=== PATIENT | male | born 1975 | race Caucasian/White ===

== ENCOUNTER → 2024-12-14 11:09 | Outpatient (REF) | payer BC, SELFPAY | LOC: RAD 11:09 | PROVIDERS: ATTENDING PHYSICIAN Internal Medicine | DX: M25.551 Pain in right hip (principal) | CPT/HCPCS: 73502 ==

== ENCOUNTER 2025-01-10 13:21 | Inpatient (IN) | payer BC, SELFPAY ==
[2025-01-10 09:13] VITALS: BP 131/90
[2025-01-10 09:52] VITALS: BMI 28.3
[2025-01-10] MEDS: MORPHINE SULFATE 4 MG IV (10:04)
--- NOTE | 2025-01-10 10:09 | ED.GENMED ---
History of Present Illness
General
Chief Complaint: Abdominal Symptoms
Source: patient
Exam Limitations: none
Time Seen by Provider: 01/10/25 09:31
Nursing documentation reviewed up to this point in time: agreed with
History of Present Illness
History of Present Illness:
49-year-old male with history as noted presents to the ER for evaluation of flank pain. Patient reports onset of symptoms rather suddenly at 6 AM and have been constant since that time. He reports a sharp pain 'like a side stitch' in the left
flank that radiates towards the left lower abdomen. No clear triggering or relieving factors noted. He denies any associated nausea, vomiting, diarrhea, constipation. Denies fevers or chills. He denies any dysuria, hematuria, change in urinary
frequency. He denies any scrotal pain or swelling. His only associated symptom today was that when he had a bowel movement he noticed some small amount of blood coating stool. He denies having had similar issues in the past. He had prior right
inguinal hernia repair but otherwise denies any prior abdominal surgeries.
Past History
Past History
ED Past Medical History: Other (Chronic back pain)
ED Past Surgical History: Orthopedic (L4-L5 disc discectomy)
Review of Systems
Review of Systems
All Other Systems: ROS reviewed and negative except as documented in HPI and ROS
Constitutional: Denies fever or chills
Respiratory: Denies trouble breathing
Cardiac: Denies chest pain
ABD/GI: Reports abdominal pain and bloody stools; Denies nausea, vomiting, diarrhea or constipated
: Reports flank pain; Denies dysuria, frequency or bleeding
Musculoskeletal: Denies neck pain
Neurological: Denies headache
Phy Exam
Physical Exam
Physical Exam:
General: Awake, alert, oriented x3; appears mildly uncomfortable
Head: Normocephalic, atraumatic
Eyes: Conjunctiva normal, sclera anicteric
Throat: Airway intact, handling secretions
Neck: Trachea midline, supple without meningismus
Lungs: Clear to auscultation bilaterally, no wheezing, rales, rhonchi
Heart: Regular rate and rhythm, no murmurs, gallops, or rubs
Abd: Soft, non distended, tender to palpation left lower quadrant, no palpable masses
Back: No CVA tenderness or reproducible tenderness in the midline or paraspinal region of the thoracic or lumbar spine
Neuro: No gross deficits
Skin: no rash in area of concern
Extremities: Warm and well-perfused
Scores
Heart Failure Risk
Heart Failure Risk Score: Not Applicable
Heart Score for Chest Pain Patients
STEMI patient?: Not applicable
Withdrawal Assessment of Alcohol
Withdrawal Assessment Completed?: Not applicable
Course
Orders/Labs/Results
Orders:
Orders
01/10/25 09:48
CT Abd/pelvis W Iv Cont Urgent
Comment:
Reason For Exam: LLQ pain
Morphine Sulfate 4 mg IV NOW STA
01/10/25 10:02
Complete Blood Count/With Diff Urgent
Urinalysis Reflex To Culture Urgent
Date Specimen was Collected: 01/10/25
Time Specimen was Collected: 10:00
Urine Microscopic Reflex Cult Urgent
Urine Culture Urgent
SULEMAN Source: U
Specimen Description:
Date Specimen was Collected: 01/10/25
Time Specimen was Collected: 10:00
01/10/25 10:03
Comprehensive Metabolic Panel Urgent
Lipase Urgent
01/10/25 10:25
Ketorolac [Toradol] 15 mg IV NOW STA
01/10/25 12:04
HYDROmorphone [Dilaudid] 0.5 mg IV NOW STA
01/10/25 12:05
Amoxicillin 875 mg/Clav 125 mg [Augmentin 875 mg/125 mg] 1 tablet PO NOW STA
01/10/25 12:11
Zosyn 3.375 grams IVPB NOW Piperacillin/Tazo 3.375 Gram [Zosyn] 3.375 gram in 50 ml IV NOW
01/10/25 12:15
0.9% Sodium Chloride 1000 ml [Nss] 1,000 ml IV 125 mls/hr
Abnormal Lab Results
01/10/25 01/10/25
10:02 10:03
WBC 17.9 H 10^3/uL
(4.8-10.8)
MPV 10.8 H fL
(7.4-10.4)
Abs Immat Gran (auto) 0.1 H 10^3/uL
(0-0.05)
Absolute Neuts (auto) 13.1 H 10^3/uL
(1.4-6.5)
Absolute Monos (auto) 1.2 H 10^3/uL
(0.1-0.6)
Lymphocytes % 17.7 L %
(20.5-51.1)
Chloride 108 H mmol/L
(98-107)
Urine Ketones 1+ A
(Negative)
Ur Occult Blood Reflex 3+ A
(Negative)
Leukocyte Esterase Rfl 3+ A
(Negative)
Urine RBC 3-6 A /HPF
(0-2)
Urine Albumin (Reflex) 2+ A
(Neg - Trace)
01/10/25 10:02
01/10/25 10:03
Vital Signs
Initial and Last Documented VS:
Initial Vital Signs
Temp Pulse Resp BP Pulse Ox
36.6 C 84 16 131/90 99
01/10/25 09:13 01/10/25 09:13 01/10/25 09:13 01/10/25 09:13 01/10/25 09:13
Last Documented Vital Signs
Temp Pulse Resp BP Pulse Ox
36.6 C 84 16 131/90 99
01/10/25 09:13 01/10/25 09:13 01/10/25 09:13 01/10/25 09:13 01/10/25 10:14
MDM/Problems Addressed
Differential Diagnosis Includes:
Nephrolithiasis, diverticulitis, colitis, constipation, musculoskeletal pain, radiculopathy, early shingles
MDM/Problems Addressed:
49-year-old male presents for evaluation of sudden onset of left flank pain as described above. Vitals and exam as above. Will plan to place an IV send labs including a CBC and a CMP, urinalysis. Will check CT of the abdomen pelvis. Will provide
pain control. Monitor closely reassess after the above.
Labs reviewed: CBC shows leukocytosis to 17.9. CMP no clinically significant abnormalities. Urinalysis positive for blood but no clear infection. CT pending. Patient still having significant pain we will add Toradol.
CT shows signs consistent with colitis and acute diverticulitis. No signs of perforation or abscess. Clinical reassessment patient still having severe pain. He is currently in the position complaining of severe abdominal pain. This is
despite morphine and Toradol. Will treat with Dilaudid. While he does have leukocytosis he has no other sirs criteria no signs of endorgan damage to suggest sepsis however given poorly controlled pain I think hospital admission is indicated in
this patient. Will treat with IV antibiotics, case discussed with hospitalist for admission.
*Radiology
Radiology exam reviewed: radiology read reviewed
*Pulse Oximetry
SaO2: 99
Oxygen Mode of Delivery: Room air
Patient hypoxic: no (99%)
*Critical Care Note
Total Time (30-74mins, 75-104mins- exclusive of procedures): Not Applicable
Data Reviewed
Review of Other/Old Records Reveals: Labs and Records
Source: patient and records
Patient Management
Discussion with other providers: Hospitalist (Discussed with hospitalist)
Escalation/DeEscalation of care consider admission/obs:
Admission indicated
ED Attending Note
-
Portions of this chart may have been created with voice recognition software.� Occasional wrong word or��sound alike� substitutions may have occurred due to the inherent limitations of voice recognition software.
Discharge Plan
Departure
Patient Disposition: Admit
Date of Disposition: 01/10/25
Time of Disposition: 12:13
Admit to doctor: Rm
Presentation/result/management discussed w/ accepting MD/DO: Hospitalist
Discharge Problem:
Acute diverticulitis, Colitis
Referrals:
UNKNOWN - PT NOT,INTERVIEWE [Unknown Provider]
Interventions
Interventions:
*Risk Screen - Suicide Last Done: 01/10/25 09:52
*General Assessment Last Done: 01/10/25 09:52
*Neglect/Abuse Screening Last Done: 01/10/25 09:52
*ED- Fall Risk Assessment Last Done: 01/10/25 09:52
*ED COVID-19 Vaccine History Last Done: 01/10/25 09:52
AY-Lsoawx-Qilpggxnwh Assessment Last Done: 01/10/25 09:52
Discharge Date and Time
Print Language: CZECH
[2025-01-10 10:21] LABS: Urine Albumin 2+ (Neg - Trace); Urine Bilirubin Negative (Negative); Urine Character Clear (Clear); Urine Color Yellow; Urine Glucose Negative (Negative); Urine Ketone 1+ (Negative); Urine Leukocyte 3+ (Negative); Urine Nitrite Negative (Negative); Urine Occult Blood 3+ (Negative); Urine Specific Gravity 1.025 (<1.030); Urine Urobilinogen 1+ (Neg - 1+)
[2025-01-10 10:26] LABS: % Basophils 0.3 % (0-2); % Eosinophils 1.6 % (0-6); % Immature Granulocytes 0.3 % (0-0.5); % Lymphocytes 17.7 % (20.5-51.1); % Monocytes 6.6 % (1.7-9.3); % Neutrophils 73.5 % (42.2-75.2); Absolute Basophils 0.1 10^3/uL (0-0.2); Absolute Eosinophils 0.3 10^3/uL (0-0.7); Absolute Immature Granulocytes 0.1 10^3/uL (0-0.05); Absolute Lymphocytes 3.2 10^3/uL (1.2-3.4); Absolute Monocytes 1.2 10^3/uL (0.1-0.6); Absolute Neutrophils 13.1 10^3/uL (1.4-6.5); Hematocrit 44.7 % (39.0-52.0); Hemoglobin 15.3 g/dL (13.0-18.0); Mean Corp Hgb Conc. 34.2 g/dL (33.0-37.0); Mean Corpuscular Hgb 30.5 pg (27.0-31.0); Mean Corpuscular Volume 89.2 fL (80.0-94.0); Mean Platelet Volume 10.8 fL (7.4-10.4); Nucleated Red Blood Cells % 0 % (-); Platelet Count 269 10^3/uL (130-400); Red Blood Cell Count 5.01 10^6/uL (4.70-6.10); Red Cell Dist. Width 13.2 % (11.5-14.5); White Blood Cell Count 17.9 10^3/uL (4.8-10.8)
[2025-01-10] MEDS: TORADOL 15 MG IV (10:34)
[2025-01-10 10:51] LABS: ALT (SGPT) 21 U/L (0-50); AST (SGOT) 24 U/L (17-59); Albumin 4.4 g/dl (3.5-5.0); Alkaline Phosphatase 54 U/L (38-126); Blood Urea Nitrogen 17 mg/dl (9-20); Calcium 9.7 mg/dl (8.4-10.2); Carbon Dioxide 29 mmol/L (22-30); Chloride 108 mmol/L (98-107); Estimated Creatinine Clearance 115 ml/min; Glucose 87 mg/dl (70-99); Lipase 269 U/L (23-300); Potassium 4.5 mmol/L (3.5-5.1); Sodium 141 mmol/L (135-145); Total Bilirubin 0.5 mg/dl (0.2-1.3); Total Protein 7.2 g/dl (6.3-8.2); eGFR > 60.00
[2025-01-10 11:58] LABS: Urine Mucus Many
[2025-01-10 11:59] LABS: Urine Squamous Cell 0-2 /LPF (Few)
[2025-01-10 12:00] LABS: Urine Amorphous Seen
[2025-01-10] MEDS: NSS 1000 IV ×2 (12:20→17:05)
[2025-01-10] MEDS: DILAUDID 0.5 MG IV ×3 (12:21→23:51)
[2025-01-10] MEDS: ZOSYN 50 IV ×3 (12:21→23:21)
[2025-01-10] MEDS: ZOFRAN 4 MG IV ×2 (12:30→16:54)
--- NOTE | 2025-01-10 13:06 | HPS.HSE ---
Family Physician
-
Family Physician: Catracho Damico
Chief Complaint
-
evaluation of Lt. flank pain.
History of Present Illness
49M HX Chr back pain seen at ER for evaluation of flank pain.
- sudden onset acute flank painsince 6am
- described as sharp pain 'like a side stitch' in the left flank that radiates towards the left lower abdomen.
- No clear triggering or relieving factors noted.
- denies any associated nausea, vomiting, diarrhea, constipation.
- denies fevers or chills. He denies any dysuria, hematuria, change in urinary frequency.
- denies any scrotal pain or swelling.
- when he had a bowel movement he noticed some small amount of blood coating stool.
- He denies having had similar issues in the past. He had prior right inguinal hernia repair but otherwise denies any prior abdominal surgeries.
Medical History
Past Medical History
Past Medical History: Reports Other (Chronic back pain))
Past Surgical History: Reports Orthopedic (L4-L5 disc discectomy))
Social History
Tobacco: Non-smoker
Alcohol: Occasional
Family History
Family History: Not pertinent
Allergies / Home Medications
Allergies reflects when Allergies were last updated in [employer].
Home Medications with original date entered in [employer]
Allergy/Medication List:
Allergies
Allergy/AdvReac Type Severity Reaction Status Date / Time
sesame seeds Allergy Anaphylaxis Uncoded 01/10/25 09:12
white armida tree Allergy Unknown Uncoded 01/10/25 09:12
Home Medications
meloxicam 15 mg tablet 15 mg PO DAILYPRN PRN mild pain 01/10/25
Review of Systems
-
Constitutional: Reports No Symptoms
EENT: Reports No Symptoms
Respiratory: Reports No Symptoms
Cardiac: Reports No Symptoms
Abdomen/GI: Reports See HPI
: Reports No Symptoms
Musculoskeletal: Reports No Symptoms
Skin: Reports No Symptoms
Neurological: Reports No Symptoms
Endocrine: Reports No Symptoms
Hematologic/Lymphatic: Reports No Symptoms
Psych: Reports No Symptoms
Physical Exam
Vital Signs
Vital Signs
Temp Pulse Resp BP Pulse Ox
98 F 84 16 131/90 99
01/10/25 09:13 01/10/25 09:13 01/10/25 09:13 01/10/25 09:13 01/10/25 10:14
Physical Exam
General: Well Developed, Well Nourished and No Apparent Distress
HEENT: NormoCephalic, Moist mucous membranes and Atraumatic
Respiratory: Clear
Cardiac: S1/S2 and Regular Rhythm; No Murmur or Rub
GI: Tender ( tender to palpation left lower quadrant)
Rectal: Deferred by Provider
Musculoskeletal: No Clubbing, No Cyanosis and No Edema
Skin: No Rash
Neuro: Nonfocal/grossly intact
Laboratory Results
-
01/10/25 10:02
01/10/25 10:03
Laboratory Results
Total Bilirubin 0.5 mg/dl (0.2-1.3) 01/10/25 10:03
AST 24 U/L (17-59) 01/10/25 10:03
ALT 21 U/L (0-50) 01/10/25 10:03
Alkaline Phosphatase 54 U/L (38-126) 01/10/25 10:03
Lipase 269 U/L (23-300) 01/10/25 10:03
Data Reviewed
-
CT Scan: Report Reviewed by me
Lab Data: Labs Reviewed by me
Impression/Plan
-
Data
Laboratory Tests
01/10/25 01/10/25
10:02 10:03
WBC 17.9 H
Hgb 15.3
Plt Count 269
Creatinine 0.8
eGFR > 60.00
CT Abd/pelvis W Iv Cont
1. Mild acute uncomplicated left-sided colitis, likely of infectious/inflammatory etiology.
2. Suspect superimposed acute diverticulitis within the mid descending colon.
Last hospitalist admission:
ASSESSMENT & PLAN
49M pw acute onset of left flank pain. POS leukocytosis to 17.9. CMP no clinically significant abnormalities. Urinalysis positive for blood but no clear infection.
Acute uncomplicated left-sided colitis, likely of infectious/inflammatory etiology.
CT suggest suspect superimposed acute diverticulitis within the mid descending colon.
- Clinical reassessment patient still having severe pain despite IV Toradol, IV Morphine and IV Dilaudid
- No signs of perforation or abscess
- NPO and IVF
- PRN IV narcotic analgesia and anti emetics
- Empiric Zosyn
- CRS consulted
DVT Px: SQH
Full code
IP MS
[2025-01-10 13:30] VITALS: BP 139/77
--- NOTE | 2025-01-10 13:54 | CM ---
CM reviewed chart and met with pt bedside in ED. Pt lives with in multistory home, 6 [address] from front, 3 [address] from side.
first floor half bath, full flight steps to second floor with BR/full BA.
Independent in ambulation, ADLs and personal care at baseline.
No DME, no hx VN/SNF.
No financial insecurities.
PCP: Catracho Damico
Pharmacy: [address]
Discharge plan: Anticipate home, no needs
[2025-01-10 15:03] VITALS: BP 112/74
--- NOTE | 2025-01-10 15:29 | CON.CRS ---
Consultation
-
Date/Time Consultation Requested: 01/10/2025, 13:28
Date/Time Consultation Performed: 01/10/2025, 14:30
Requesting Provider: Shaggy Matias MD
Performing Provider: Mo Hurt MD
Reason for Consultation: diverticulits
Medical History
-
Chief Complaint: abdominal pain
History of Present Illness:
49-year-old male with a past medical history of chronic back pain secondary to multiple spine surgeries, presents to the ER due to abdominal pain. The patient states that pain like this is never happened before and started around 6 AM this morning.
He vomited several times and was nauseous earlier. Typically has bowel movements are 4-5 times a day but the one this morning had blood in it which was concerning enough for him to go to the ER. He has never had a colonoscopy. Denies a family
history of rectal or colon cancer. In the ER his WBC was 17.9. He remains afebrile. CT of the abdomen and pelvis showed mild acute uncomplicated left-sided colitis. Likely of infectious/inflammatory etiology. Suspect superimposed acute
diverticulitis within the mid descending colon. Given these findings. We have been consulted for surgical opinion.
Past Medical History
Past Medical History: Other (Chronic back pain)
Past Surgical History: Other (Multiple spine surgeries)
Social History
Tobacco: Smoker (3/4 pack a day since 10 years old)
Alcohol: None
Drug: None
Family History
Family History: Reviewed & Not Pertinent
Allergies / Home Medications
Allergy/AdvReac Type Severity Reaction Status Date / Time
sesame seeds Allergy Anaphylaxis Uncoded 01/10/25 09:12
white armida tree Allergy Unknown Uncoded 01/10/25 09:12
�Medication �Instructions �Recorded �Confirmed �Type
meloxicam 15 mg tablet 15 mg PO DAILYPRN PRN mild pain 01/10/25 01/10/25 History
Review of Systems
-
History Source: Patient
Abdomen/GI: Abdominal Pain, Nausea, Vomiting and Bloody Stools
A 10 point review of systems was completed, and was negative except as per HPI.
Physical Exam
Vital Signs
Temp 98 F 01/10/25 09:13
Pulse 84 01/10/25 13:30
Resp Rate 18 01/10/25 13:30
Blood pressure 112/74 01/10/25 15:03
SaO2 98 01/10/25 13:30
01/09/25 01/10/25 01/11/25
06:59 06:59 06:59
Actual Weight 89.358 kg
Body Mass Index (BMI) 28.3
Lab Results / Allergies
01/10/25 10:02
01/10/25 10:03
WBC 17.9 10^3/uL (4.8-10.8) H 01/10/25 10:02
Hgb 15.3 g/dL (13.0-18.0) 01/10/25 10:02
Hct 44.7 % (39.0-52.0) 01/10/25 10:02
Plt Count 269 10^3/uL (130-400) 01/10/25 10:02
Abs Immat Gran (auto) 0.1 10^3/uL (0-0.05) H 01/10/25 10:02
Neutrophils % 73.5 % (42.2-75.2) 01/10/25 10:02
Allergy/AdvReac Type Severity Reaction Status Date / Time
sesame seeds Allergy Anaphylaxis Uncoded 01/10/25 09:12
white armida tree Allergy Unknown Uncoded 01/10/25 09:12
Physical Exam
General: Well Developed, Well Nourished and No Apparent Distress
GI: Soft, Tender (Left LUQ/Left lateral) and Distended (mild)
Skin: Warm and Dry
Neuro: AO x 3
Data Reviewed
-
CT Scan: Image Personally Visualized and interpreted, Report Reviewed by me and Discussed with Patient
Labs: Labs Reviewed by me, Discussed with Physician and Discussed with Patient
Old Records: Reviewed
Assessment / Plan
-
Assessment: 49-year-old male with a past medical history of chronic back pain presents to the ER after abdominal pain and bloody stools this morning. Found to have left-sided colitis likely infectious or inflammatory in nature as well as
diverticulitis.
Plan:
- Remain n.p.o. with IV fluids
- Recommend gastroenterology consult given colitis findings
- IV antibiotics
- Will need eventual colonoscopy by Dr. Hurt as an outpatient
-No plans for surgery at this time. If he worsens he will require colectomy with colostomy creation.
- Trend lab work and exam
- Stool culture, CRP, and fecal Calproctin ordered
- Will follow
[2025-01-10 16:13] VITALS: BP 130/81; BMI 28.5
--- NOTE | 2025-01-10 17:13 | CON.GI ---
Addendum entered and electronically signed by Graham Shankar MD 01/10/25 18:25:
The patient was seen and examined by me independently in collaboration with the nurse practitioner.
Past medical history/social history/medications/allergies/family history reviewed.
Lab data and imaging data reviewed.
49-year-old male past medical history of chronic back pain on meloxicam, smoker presenting with left upper quadrant pain. He did have blood in his stool but no diarrhea. This all happened acutely this morning. Never had colonoscopy. No family
history of IBD although he has history of Urticara. No chronic GI symptoms. Symptoms did happen after eating chicken at [employer]. Denies any sick contacts, travel, antibiotics.
He was found to have leukocytosis with white blood cell count of 17.9, hemoglobin 15.[address] to have mild acute uncomplicated colitis likely infectious or inflammatory in etiology. Suspect superimposed acute diverticulitis in the mid
descending colon.
This seems to be more acute in etiology making inflammatory bowel disease less likely however I would recommend a colonoscopy in 6 to 8 weeks both to assess for any ongoing inflammation as well as to rule out malignancy with this possible
diverticulitis although my suspicion is low given the length and bowel involved. Patient is also 49 and never had a colonoscopy. Although he is not having diarrhea which is typically more expected with infectious etiology, stool culture was
ordered and I also ordered C. difficile in case he does have some diarrhea. Fecal calprotectin has been ordered as well.
I will send a message to my office to set him up for a colonoscopy in 6 to 8 weeks.
In the interim, recommend bowel rest, antibiotics, monitor hemoglobin and white blood cell count.
Original Note:
Consultation
-
Date/Time Consultation Requested: 01/10/25 1600
Date/Time Consultation Performed: 01/10/25 1700
Requesting Provider: Dr. Hurt
Performing Provider: Dr. Otoole/MARRY Broderick
Reason for Consultation: colitis/diverticultis
Medical History
Chief Complaint / HPI
Chief Complaint: left sided abd pain
History of Present Illness:
49-year-old male with past medical history of chronic back pain on meloxicam for the past week, tobacco use presents to the emergency room with acute onset of left-sided abdominal discomfort associated with bowel movement with undigested food and
blood. Asked to evaluate for the same. The patient states that this morning he woke up and had left upper quadrant discomfort that he states was a 'stabbing sensation'. He states that he had a bowel movement which he showed me that was large,
solid, had blood mixed throughout it. He has had no further bowel movement since. He still with significant left upper quadrant tenderness upon palpation. He did have an episode of nausea and vomiting as well. Because of this he proceeded to
come to the emergency room. Prior to the meloxicam use he was taking intermittent Advil for back pain. He has never had a colonoscopy before. No family history of gastrointestinal malignancy or IBD. He does have a temperature of 100.2, WBC 17.9.
He was placed on Zosyn. He denies any chills, melena, dysphagia or odynophasia. No early satiety or unintentional weight loss. He has never had pains or issues prior to this. His bowel movements are usually soft, formed, regular and daily. He
does smoke tobacco. He does not drink any alcohol. He denies any sick contacts, recent travel spoiled foods or raw seafood/undercooked meats. At the present time patient is still quite tender in left upper quadrant.
Past Medical History
Past Medical History: Other (Chronic back pain)
Past Surgical History: Orthopedic (L4-L5 discectomy)
Social History
Tobacco: Smoker
Alcohol: None
Drug: None
Personal:
Living: With Family
Family History
Family History: Other (No family history of gastrointestinal malignancy or IBD)
Allergies / Home Medications
Allergy/AdvReac Type Severity Reaction Status Date / Time
sesame seed Allergy Anaphylaxis Verified 01/10/25 16:33
tree and shrub pollen Allergy WHITE SIDDHARTH Verified 01/10/25 16:33
TREE-reacted
to on
scratch
test
�Medication �Instructions �Recorded
meloxicam 15 mg tablet 15 mg PO DAILYPRN PRN mild pain 01/10/25
Review of Systems
-
All other systems: A 12 pt ROS was Negative except as stated above in HPI
Vital Signs
Temp Pulse Resp BP Pulse Ox
100.2 F 99 14 130/81 100
01/10/25 16:13 01/10/25 16:13 01/10/25 16:13 01/10/25 16:13 01/10/25 16:41
Physical Exam
Exam
General: No Apparent Distress
HEENT: Anicteric
Respiratory: Clear
Cardiac: Regular Rhythm
GI: Soft, Non Distended, Normal Bowel Sounds and Tender (Left upper quadrant)
Musculoskeletal: No Edema
Skin: Warm and Dry
Neuro: AO x 3
Psych: Calm
Results
WBC 17.9 10^3/uL (4.8-10.8) H 01/10/25 10:02
Hgb 15.3 g/dL (13.0-18.0) 01/10/25 10:02
Hct 44.7 % (39.0-52.0) 01/10/25 10:02
MCV 89.2 fL (80.0-94.0) 01/10/25 10:02
Plt Count 269 10^3/uL (130-400) 01/10/25 10:02
Absolute Neuts (auto) 13.1 10^3/uL (1.4-6.5) H 01/10/25 10:02
Sodium 141 mmol/L (135-145) 01/10/25 10:03
Potassium 4.5 mmol/L (3.5-5.1) 01/10/25 10:03
Chloride 108 mmol/L (98-107) H 01/10/25 10:03
Carbon Dioxide 29 mmol/L (22-30) 01/10/25 10:03
BUN 17 mg/dl (9-20) 01/10/25 10:03
Creatinine 0.8 mg/dL (0.7-1.3) 01/10/25 10:03
Calcium 9.7 mg/dl (8.4-10.2) 01/10/25 10:03
Total Bilirubin 0.5 mg/dl (0.2-1.3) 01/10/25 10:03
AST 24 U/L (17-59) 01/10/25 10:03
ALT 21 U/L (0-50) 01/10/25 10:03
Alkaline Phosphatase 54 U/L (38-126) 01/10/25 10:03
Lipase 269 U/L (23-300) 01/10/25 10:03
Diagnostic Image Results:
CT abdomen and pelvis with IV contrast only:
1. Mild acute uncomplicated left-sided colitis, likely of infectious/inflammatory etiology.
2. Suspect superimposed acute diverticulitis within the mid descending colon.
Prior GI Procedures:
EGD: Never
Colonoscopy: Never
Assessment / Plan
-
49-year-old male with past medical history of chronic back pain on meloxicam for the past week, tobacco use presents to the emergency room with acute onset of left-sided abdominal discomfort associated with bowel movement with undigested food and
blood. Asked to evaluate for the same. The patient states that this morning he woke up and had left upper quadrant discomfort that he states was a 'stabbing sensation'. He states that he had a bowel movement which he showed me that was large,
solid, had blood mixed throughout it. He has had no further bowel movement since. He still with significant left upper quadrant tenderness upon palpation. He did have an episode of nausea and vomiting as well. Because of this he proceeded to
come to the emergency room. Prior to the meloxicam use he was taking intermittent Advil for back pain. He has never had a colonoscopy before. No family history of gastrointestinal malignancy or IBD. He does have a temperature of 100.2, WBC 17.9.
He was placed on Zosyn.
Impression:
Left-sided colitis/diverticulitis
Plan:
- N.p.o./IV fluid
- Continue Zosyn
- If with diarrhea check stool studies
- Colorectal surgery following
-CBC, BMP in am
-ESR, CRP and fecal [place] Pro pending
- Will need eventual colonoscopy, likely in 6 to 8 weeks.
- Further recommendations to be forthcoming
-
-
Thank you for consultation and allowing me to participate in the patient's care. Please call the [facility] physician during the after hours with any questions or concerns.
[2025-01-10] MEDS: TYLENOL 650 MG PO (18:44)
[2025-01-10] MEDS: HEPARIN 5000 UNITS SC (20:14)
[2025-01-10] MEDS: TORADOL 10 MG IV (20:15)
[2025-01-10 23:31] VITALS: BP 103/60
[2025-01-11] MEDS: NSS 1000 IV ×2 (03:45→15:07)
[2025-01-11] MEDS: ZOSYN 50 IV ×3 (05:07→17:38)
[2025-01-11] MEDS: DILAUDID 0.5 MG IV ×3 (05:55→19:41)
[2025-01-11 07:30] VITALS: BP 106/69
[2025-01-11 08:22] LABS: % Basophils 0.2 % (0-2); % Eosinophils 0.3 % (0-6); % Immature Granulocytes 0.5 % (0-0.5); % Lymphocytes 9.6 % (20.5-51.1); % Monocytes 7.7 % (1.7-9.3); % Neutrophils 81.7 % (42.2-75.2); Absolute Eosinophils 0.1 10^3/uL (0-0.7); Absolute Immature Granulocytes 0.1 10^3/uL (0-0.05); Absolute Lymphocytes 1.9 10^3/uL (1.2-3.4); Absolute Monocytes 1.5 10^3/uL (0.1-0.6); Absolute Neutrophils 15.8 10^3/uL (1.4-6.5); Hematocrit 38.7 % (39.0-52.0); Hemoglobin 13.3 g/dL (13.0-18.0); Mean Corp Hgb Conc. 34.4 g/dL (33.0-37.0); Mean Corpuscular Hgb 30.6 pg (27.0-31.0); Nucleated Red Blood Cells % 0 % (-); Platelet Count 196 10^3/uL (130-400); Red Blood Cell Count 4.35 10^6/uL (4.70-6.10); Red Cell Dist. Width 13.2 % (11.5-14.5); White Blood Cell Count 19.4 10^3/uL (4.8-10.8)
[2025-01-11 08:33] LABS: Blood Urea Nitrogen 15 mg/dl (9-20); Calcium 8.3 mg/dl (8.4-10.2); Carbon Dioxide 22 mmol/L (22-30); Chloride 110 mmol/L (98-107); Estimated Creatinine Clearance 92 ml/min; Glucose 100 mg/dl (70-99); Sodium 139 mmol/L (135-145); eGFR > 60.00
[2025-01-11] MEDS: TORADOL 10 MG IV ×2 (08:49→15:08)
[2025-01-11] MEDS: HEPARIN 5000 UNITS SC ×2 (08:51→19:42)
--- NOTE | 2025-01-11 10:22 | W.PN.CRS1 ---
Today's Communication / Plan
-
remain npo
iv abx
trend labs/crp
Assessment/Plan
-
Assessment: 49-year-old male with a past medical history of chronic back pain presents to the ER after abdominal pain and bloody stools this morning. Found to have left-sided colitis likely infectious or inflammatory in nature as well as
diverticulitis.
WBC: 19.4 (17.9), Hgb 13.3
CRP: 145 (25.7)
Plan:
- Remain n.p.o. with IV fluids given pain
- Appreicate GI
- IV antibiotics
- Will need eventual colonoscopy
-No plans for surgery at this time. If he worsens he will require colectomy with colostomy creation.
- Trend lab work and exam, CRP again tomorrow
- Stool culture, fecal procal, c.diff pending
- Will follow
Subjective Data
Subjective Data
Date of Service: January 11, 2025
Patient states he feels about the same as yesterday. His pain has not improved. He has not vomited since before coming to the ER yesterday. Denies nausea. He has not had any stool but has had flatus.
Objective Data
-
Vital Signs
Temp Pulse Resp BP Pulse Ox
98.3 F 66 16 106/69 95
01/11/25 07:30 01/11/25 07:30 01/11/25 07:30 01/11/25 07:30 01/11/25 07:30
Intake & Output
01/10/25 01/11/25 01/12/25
06:59 06:59 06:59
Intake Total 1779
Balance 1779
Intake:
Oral fluids 480 / 480
IV fluids (Total) 1200 / 1200
IV piggybacks 100 / 100
Other:
Number of approximated MODERATE 3
amounts of urine
Lab Results
01/11/25 07:22
01/11/25 07:22
Physical Exam
-
General: No Acute Distress and AOx3
Abdomen: Soft, Distended (mild) and Tender (Left LUQ/Left lateral - mild)
Skin: Warm and Dry
[2025-01-11] MEDS: NICODERM TRANSDERMAL 14 MG TRANSDERM (10:39)
--- NOTE | 2025-01-11 13:10 | W.PN.HOSP.TC ---
Today's Communication/Plan
-
Continue IV antibiotics
Continue IV fluids
Adequate pain control
Assessment / Plan
Assessment / Plan
Assessment
49-year-old male presenting with left lower quadrant abdominal pain, leukocytosis at presentation.
Plan
#Left lower quadrant abdominal pain
Likely due to acute diverticulitis versus colitis
CT abdomen pelvis�1. Mild acute uncomplicated left-sided colitis, likely of infectious/inflammatory etiology. Suspect superimposed acute diverticulitis within the mid descending colon.
Patient reports no diarrhea, no hematochezia
N.p.o.
Continue IV Zosyn
Continue IV fluids
Adequate pain control�ketorolac, Dilaudid, as needed
CRP 25 >>145
White count trending up 17.9 >>19.4
Will monitor hemoglobin
Will monitor white count, check temperature curve
Monitor for clinical improvement
GI on board-recommend colonoscopy as outpatient in 6-8 weeks
Colorectal on board
#DVT prophylaxis�heparin subcu
Diet�n.p.o.
Full code
Anticipated Discharge: 24 - 48 hours
Subjective/Interval History
-
Date of Service: January 11, 2025
Patient reports no improvement and has abdominal pain. He had an episode of vomiting yesterday afternoon around 4. Did not have any bowel movement since yesterday AM. Overnight�Tmax�100.2, no chills
Objective Data
-
Labs:
Laboratory Results
01/11/25
07:22
WBC 19.4 H
Hgb 13.3
Hct 38.7 L
Plt Count 196 D
Sodium 139
Potassium 4.0
Chloride 110 H
Carbon Dioxide 22
BUN 15
Creatinine 1.0
Glucose 100 H
Calcium 8.3 L
Vital Signs:
Vital Signs
Temp Pulse Resp BP Pulse Ox
98.3 F 66 16 106/69 95
01/11/25 07:30 01/11/25 07:30 01/11/25 07:30 01/11/25 07:30 01/11/25 07:30
I&O
01/10/25 01/11/25 01/12/25
06:59 06:59 06:59
Intake Total 1779
Balance 1779
Review of Systems
-
All other systems: Reviewed and negative
Physical Exam
-
General: Well Developed and Well Nourished
HEENT: Normocephalic and Atraumatic
Respiratory: Clear to Auscultation
Cardiac: Regular Rhythm and S1/S2
GI: Soft, Nondistended and Tender (Extremely tender in the left lower quadrant, no guarding)
Skin: Warm and Dry
Neuro: Awake, Alert, Oriented and AO x 3
Psych: Calm
--- NOTE | 2025-01-11 14:04 | W.PN.GI.CBS2 ---
Today's Communication / Plan
-
N.p.o.
Continue antibiotics
Assessment / Plan
-
49-year-old male with past medical history of chronic back pain on meloxicam for the past week, tobacco use presents to the emergency room with acute onset of left-sided abdominal discomfort associated with bowel movement with undigested food and
blood. Asked to evaluate for the same. The patient states that this morning he woke up and had left upper quadrant discomfort that he states was a 'stabbing sensation'. He states that he had a bowel movement which he showed me that was large,
solid, had blood mixed throughout it. He has had no further bowel movement since. He still with significant left upper quadrant tenderness upon palpation. He did have an episode of nausea and vomiting as well. Because of this he proceeded to
come to the emergency room. Prior to the meloxicam use he was taking intermittent Advil for back pain. He has never had a colonoscopy before. No family history of gastrointestinal malignancy or IBD. He does have a temperature of 100.2, WBC 17.9.
He was placed on Zosyn.
Impression:
Left-sided colitis -infectious versus inflammatory vs diverticulitis. Considering his acute clinical presentation less likely IBD. No prior colonoscopy.
Plan:
-Patient continues to have abdominal pain. WBC is 19.4. CRP up trending from 25 to 145 . No fever
-Colorectal surgery on board. Progress Notes reviewed-continue nonop measures
-N.p.o.
- Continue antibiotics
- If diarrhea check stool for culture
-Check blood culture if worsening leukocytosis. No fever
- Stool calprotectin ordered
- Trend CRP
- Patient eventually need colonoscopy in 6 to 8 weeks as outpatient
Total Time Spent with Patient (in minutes): 35
Subjective
Subjective
Date of Service: January 11, 2025
Patient continues to have left lower quadrant abdominal pain. No BM or rectal bleeding
Objective
Data Reviewed
Laboratory Data:
Laboratory Results
01/11/25 07:22
01/11/25 07:22
Laboratory Results
Total Bilirubin 0.5 mg/dl (0.2-1.3) 01/10/25 10:03
AST 24 U/L (17-59) 01/10/25 10:03
ALT 21 U/L (0-50) 01/10/25 10:03
Alkaline Phosphatase 54 U/L (38-126) 01/10/25 10:03
Lipase 269 U/L (23-300) 01/10/25 10:03
Vital Signs and I&O:
Vital Signs
Temp Pulse Resp BP Pulse Ox
98.3 F 66 16 106/69 95
01/11/25 07:30 01/11/25 07:30 01/11/25 07:30 01/11/25 07:30 01/11/25 09:10
I&O
01/10/25 01/11/25 01/12/25
06:59 06:59 06:59
Intake Total 1779
Balance 1779
Physical Exam
Physical Exam
GI: Soft, Non Distended and Tender (Left lower quadrant)
[2025-01-11 15:00] VITALS: BP 128/83
[2025-01-11 16:50] VITALS: BP 128/83
--- NOTE | 2025-01-11 18:02 | PTCARENOTE ---
Received patient this am AAOx3. Pt NPO with IVF infusing. pt complained of LLQ pain. Pt medicated with IV Dilaudid and Toradol PRN for pain with relief. Pt OOB ambulating in room independently. Made patient comfortable. Cont to assess patient
status.
[2025-01-11 23:44] VITALS: BP 116/77
[2025-01-12] MEDS: ZOSYN 50 IV ×5 (00:06→23:49)
[2025-01-12] MEDS: NSS 1000 IV ×3 (00:06→21:42)
[2025-01-12] MEDS: DILAUDID 0.5 MG IV ×5 (00:11→23:50)
[2025-01-12] MEDS: TORADOL 10 MG IV (04:00)
[2025-01-12] MEDS: HEPARIN 5000 UNITS SC ×2 (07:44→19:21)
[2025-01-12] MEDS: NICODERM TRANSDERMAL 14 MG TRANSDERM (07:45)
[2025-01-12 07:53] VITALS: BP 125/79
[2025-01-12 07:57] LABS: Hematocrit 39.8 % (39.0-52.0); Hemoglobin 13.4 g/dL (13.0-18.0); Mean Corp Hgb Conc. 33.7 g/dL (33.0-37.0); Mean Corpuscular Hgb 30.2 pg (27.0-31.0); Mean Corpuscular Volume 89.8 fL (80.0-94.0); Mean Platelet Volume 10.7 fL (7.4-10.4); Platelet Count 191 10^3/uL (130-400); Red Blood Cell Count 4.43 10^6/uL (4.70-6.10); Red Cell Dist. Width 12.7 % (11.5-14.5); White Blood Cell Count 15.3 10^3/uL (4.8-10.8)
[2025-01-12 09:08] LABS: ALT (SGPT) 15 U/L (0-50); AST (SGOT) 18 U/L (17-59); Albumin 3.5 g/dl (3.5-5.0); Alkaline Phosphatase 51 U/L (38-126); Blood Urea Nitrogen 15 mg/dl (9-20); Calcium 8.5 mg/dl (8.4-10.2); Carbon Dioxide 20 mmol/L (22-30); Chloride 111 mmol/L (98-107); Estimated Creatinine Clearance 115 ml/min; Glucose 71 mg/dl (70-99); Potassium 3.8 mmol/L (3.5-5.1); Sodium 141 mmol/L (135-145); Total Bilirubin 1.2 mg/dl (0.2-1.3); Total Protein 6.1 g/dl (6.3-8.2); eGFR > 60.00
--- NOTE | 2025-01-12 10:46 | W.PN.CRS1 ---
Today's Communication / Plan
-
Trial of clears
Continue ABX
Assessment/Plan
-
Assessment: 49-year-old male with a past medical history of chronic back pain presents to the ER after abdominal pain and bloody stools this morning. Found to have left-sided colitis likely infectious or inflammatory in nature as well as
diverticulitis.
Afebrile, VSS
Responding well to bowel rest and abx
Pain improving
WBC and CRP now trending down
Plan:
- Trial of clears
- Appreciate GI
- Continue IV antibiotics
- Will need eventual colonoscopy
- No plans for surgery at this time. If he worsens he will require colectomy with colostomy creation.
- Stool culture, fecal procal, c.diff ordered but not yet sent
- Will follow
Subjective Data
Subjective Data
Date of Service: January 12, 2025
Patient seen and examined at bedside with Dr. Hayden present. Denies n/v. passing flatus but no stools since yesterday morning. Pain improved today, able to take deeper breaths and move more freely.
Objective Data
-
Vital Signs
Temp Pulse Resp BP Pulse Ox
98.8 F 66 16 125/79 99
01/12/25 07:53 01/12/25 07:53 01/12/25 07:53 01/12/25 07:53 01/12/25 07:53
Intake & Output
01/11/25 01/12/25 01/13/25
06:59 06:59 06:59
Intake Total 1779 2500 / 2500
Balance 1779 2500 / 2500
Intake:
Oral fluids 480 / 480
IV fluids (Total) 1200 / 1200 2300 / 2300
IV piggybacks 100 / 100 200 / 200
Other:
Number of approximated MODERATE 3 2
amounts of urine
Number of approximated LARGE 2
amounts of urine
Lab Results
01/12/25 07:22
01/12/25 07:22
Physical Exam
-
General: No Acute Distress and AOx3
Abdomen: Soft, Distended (mild) and Tender (Left LUQ/Left lateral - moderate with voluntary guarding. Mild RLQ tenderness)
Skin: Warm and Dry
--- NOTE | 2025-01-12 11:39 | W.PN.GI.CBS2 ---
Today's Communication / Plan
-
Continue antibiotics
Pain management
Assessment / Plan
-
49-year-old male with past medical history of chronic back pain on meloxicam for the past week, tobacco use presents to the emergency room with acute onset of left-sided abdominal discomfort associated with bowel movement with undigested food and
blood. Asked to evaluate for the same. The patient states that this morning he woke up and had left upper quadrant discomfort that he states was a 'stabbing sensation'. He states that he had a bowel movement which he showed me that was large,
solid, had blood mixed throughout it. He has had no further bowel movement since. He still with significant left upper quadrant tenderness upon palpation. He did have an episode of nausea and vomiting as well. Because of this he proceeded to
come to the emergency room. Prior to the meloxicam use he was taking intermittent Advil for back pain. He has never had a colonoscopy before. No family history of gastrointestinal malignancy or IBD. He does have a temperature of 100.2, WBC 17.9.
He was placed on Zosyn.
Impression:
Left-sided colitis -infectious versus inflammatory vs diverticulitis. Considering his acute clinical presentation less likely IBD. No prior colonoscopy.
Plan:
-Patient continues to have abdominal pain - less severe this am . WBC is trending down. CRP up trending from 25 to 145 . Remains elevated. No fever
-Colorectal surgery on board. Progress Notes reviewed-continue nonop measures
- Will continue n.p.o.
- Continue antibiotics
- If diarrhea check stool for culture
- Check blood culture if worsening leukocytosis/ fever
- Stool calprotectin ordered
- Trend CRP
- Patient eventually need colonoscopy in 6 to 8 weeks as outpatient
Total Time Spent with Patient (in minutes): 35
Subjective
Subjective
Date of Service: January 12, 2025
Feeling better. Abdominal pain is less severe today. Denies any rectal bleeding
Objective
Data Reviewed
Laboratory Data:
Laboratory Results
01/12/25 07:22
01/12/25 07:22
Laboratory Results
Total Bilirubin 1.2 mg/dl (0.2-1.3) 01/12/25 07:22
AST 18 U/L (17-59) 01/12/25 07:22
ALT 15 U/L (0-50) 01/12/25 07:22
Alkaline Phosphatase 51 U/L (38-126) 01/12/25 07:22
Lipase 269 U/L (23-300) 01/10/25 10:03
Vital Signs and I&O:
Vital Signs
Temp Pulse Resp BP Pulse Ox
98.8 F 66 16 125/79 99
01/12/25 07:53 01/12/25 07:53 01/12/25 07:53 01/12/25 07:53 01/12/25 07:53
I&O
01/11/25 01/12/25 01/13/25
06:59 06:59 06:59
Intake Total 1779 / 1779 2500 / 2500
Balance 1779 2500 / 2500
Physical Exam
Physical Exam
GI: Soft, Non Distended and Tender (Left lower quadrant tenderness on the palpation)
--- NOTE | 2025-01-12 11:55 | W.PN.HOSP.TC ---
Today's Communication/Plan
-
decrease IVF as pt now on clears
apprec GI/CRS
Assessment / Plan
Assessment / Plan
pt is a 49 year old male
Acute descending colitis versus diverticulitis (did not meet sepsis criteria)--apprec GI/CRS--cont zosyn--now on clears--advance per CRS as tolerated
DVT proph
code status-- full code
Anticipated Discharge: > 48 hours
Subjective/Interval History
-
Date of Service: January 12, 2025
pt feeling better--tolerating clears so far
Objective Data
-
Labs:
Laboratory Results
01/12/25
07:22
WBC 15.3 H
Hgb 13.4
Hct 39.8
Plt Count 191
Sodium 141
Potassium 3.8
Chloride 111 H
Carbon Dioxide 20 L
BUN 15
Creatinine 0.8
Glucose 71
Calcium 8.5
Total Bilirubin 1.2
AST 18
ALT 15
Alkaline Phosphatase 51
Vital Signs:
max temp for 24 hours
01/11/25
23:44
Temp 99.0 F
Vital Signs
Temp Pulse Resp BP Pulse Ox
98.8 F 66 16 125/79 99
01/12/25 07:53 01/12/25 07:53 01/12/25 07:53 01/12/25 07:53 01/12/25 07:53
I&O
01/11/25 01/12/25 01/13/25
06:59 06:59 06:59
Intake Total 1779 2500 / 2500
Balance 1779 2500 / 2500
Review of Systems
-
All other systems: Reviewed and negative
Physical Exam
-
General: Well Developed, Well Nourished and No Apparent Distress
HEENT: Normocephalic and Atraumatic
Respiratory: Clear to Auscultation; Negative Wheezes or Rhonchi
Cardiac: Regular Rhythm and S1/S2; Negative Murmur
GI: Soft, Nontender, Nondistended and Normal Bowel Sounds
Musculoskeletal: No Clubbing, No Cyanosis and No Edema
Skin: Warm
Neuro: Awake
[2025-01-12 15:14] VITALS: BP 130/89
--- NOTE | 2025-01-12 16:00 | PTCARENOTE ---
Pt tolerating clear liquid diet. Pt with semi formed BM and reports increased abd pain 8/10 after passing stool. PRN dilaudid administered.
--- NOTE | 2025-01-12 16:49 | PTCARENOTE ---
01/12- Patient transferred and oriented to unit without issue. AAOX3; fully independent. No complaints at this time.
--- NOTE | 2025-01-12 17:02 | PTCARENOTE ---
Stool sample positive for CDiff. Dr. Henson aware. Pt transferred to private room and placed on enhanced precautions.
[2025-01-12] MEDS: FIRVANQ 125 MG PO ×2 (18:03→21:42)
[2025-01-12 18:07] VITALS: BMI 28.5
[2025-01-12 23:30] VITALS: BP 125/81
[2025-01-13] MEDS: ZOSYN 50 IV ×2 (05:00→11:26)
[2025-01-13] MEDS: DILAUDID 0.5 MG IV ×3 (05:51→20:18)
[2025-01-13 06:24] LABS: Hematocrit 39.9 % (39.0-52.0); Hemoglobin 13.3 g/dL (13.0-18.0); Mean Corp Hgb Conc. 33.3 g/dL (33.0-37.0); Mean Corpuscular Hgb 30.3 pg (27.0-31.0); Mean Corpuscular Volume 90.9 fL (80.0-94.0); Mean Platelet Volume 10.9 fL (7.4-10.4); Platelet Count 197 10^3/uL (130-400); Red Blood Cell Count 4.39 10^6/uL (4.70-6.10); Red Cell Dist. Width 12.9 % (11.5-14.5); White Blood Cell Count 12.3 10^3/uL (4.8-10.8)
[2025-01-13 06:57] LABS: Blood Urea Nitrogen 10 mg/dl (9-20); Calcium 8.6 mg/dl (8.4-10.2); Carbon Dioxide 22 mmol/L (22-30); Chloride 109 mmol/L (98-107); Estimated Creatinine Clearance 115 ml/min; Glucose 85 mg/dl (70-99); Potassium 3.6 mmol/L (3.5-5.1); Sodium 141 mmol/L (135-145); eGFR > 60.00
[2025-01-13] MEDS: NICODERM TRANSDERMAL 14 MG TRANSDERM (07:20)
[2025-01-13] MEDS: FIRVANQ 125 MG PO ×4 (07:20→22:28)
[2025-01-13] MEDS: HEPARIN 5000 UNITS SC ×2 (07:20→20:12)
[2025-01-13 08:37] VITALS: BP 132/86
[2025-01-13] MEDS: NSS 1000 IV (09:01)
[2025-01-13] MEDS: TORADOL 10 MG IV (09:01)
--- NOTE | 2025-01-13 09:33 | W.PN.SURGUPD ---
Surgical Update
Surgical Update
C. difficile positive, which explains his colitis.
C. difficile treatment per primary
No acute surgical intervention warranted at this time.
He is on appropriate precautions and to minimize the amount of contacts we did not see the patient today.
Surgery will sign off, please call with any questions or concerns.
--- NOTE | 2025-01-13 11:28 | W.PN.GI.CBS2 ---
Today's Communication / Plan
-
Full liquid diet. Advance as tolerated
Continue vancomycin
Assessment / Plan
-
49-year-old male with past medical history of chronic back pain on meloxicam for the past week, tobacco use presents to the emergency room with acute onset of left-sided abdominal discomfort associated with bowel movement with undigested food and
blood. Asked to evaluate for the same. The patient states that this morning he woke up and had left upper quadrant discomfort that he states was a 'stabbing sensation'. He states that he had a bowel movement which he showed me that was large,
solid, had blood mixed throughout it. He has had no further bowel movement since. He still with significant left upper quadrant tenderness upon palpation. He did have an episode of nausea and vomiting as well. Because of this he proceeded to
come to the emergency room. Prior to the meloxicam use he was taking intermittent Advil for back pain. He has never had a colonoscopy before. No family history of gastrointestinal malignancy or IBD. He does have a temperature of 100.2, WBC 17.9.
He was placed on Zosyn.
Impression:
Left-sided colitis -infectious versus inflammatory vs diverticulitis. Considering his acute clinical presentation less likely IBD. No prior colonoscopy.
C.diff +
Plan:
- Abdominal pain is better. Abdominal examination no tenderness. WBC is trending down. No fever . Stool studies positive for C. difficile-vancomycin started by medical team
-Okay to advance to full liquid diet and then low fat low residual diet as tolerated
- continue vanco . ok to d/c zosyn
- follow up stool culture
-Colorectal surgery was on board. Progress Notes reviewed-continue nonop measures.
- Stool calprotectin pending
- Trend CRP
- Patient eventually need colonoscopy in 8 weeks as outpatient
Total Time Spent with Patient (in minutes): 35
Subjective
Subjective
Date of Service: January 13, 2025
Feeling better. No abdominal pain now. Having loose stools. Stool positive for C. diff
Objective
Data Reviewed
Laboratory Data:
Laboratory Results
01/13/25 05:48
01/13/25 05:48
Laboratory Results
Total Bilirubin 1.2 mg/dl (0.2-1.3) 01/12/25 07:22
AST 18 U/L (17-59) 01/12/25 07:22
ALT 15 U/L (0-50) 01/12/25 07:22
Alkaline Phosphatase 51 U/L (38-126) 01/12/25 07:22
Lipase 269 U/L (23-300) 01/10/25 10:03
Vital Signs and I&O:
Vital Signs
Temp Pulse Resp BP Pulse Ox
99.2 F 56 16 132/86 96
01/13/25 08:37 01/13/25 08:37 01/13/25 08:37 01/13/25 08:37 01/13/25 08:37
I&O
01/12/25 01/13/25 01/14/25
06:59 06:59 06:59
Intake Total 2500 / 2500 1700 / 1700
Balance 2500 / 2500 1700 / 1700
Physical Exam
Physical Exam
GI: Soft, Non Distended and Non Tender
--- NOTE | 2025-01-13 11:45 | W.PN.HOSP.TC ---
Today's Communication/Plan
-
advance diet
stop zosyn
cont oral vanco
Assessment / Plan
Assessment / Plan
pt is a 49 year old male
Acute C. diff positive colitis --OK to stop zosyn--cont oral vanco--advance diet--apprec GI/CRS
DVT proph
code status-- full code
Anticipated Discharge: Within 24 hours
Subjective/Interval History
-
Date of Service: January 13, 2025
pt feels much better but having diarrhea now
Objective Data
-
Labs:
Laboratory Results
01/13/25
05:48
WBC 12.3 H
Hgb 13.3
Hct 39.9
Plt Count 197
Sodium 141
Potassium 3.6
Chloride 109 H
Carbon Dioxide 22
BUN 10
Creatinine 0.8
Glucose 85
Calcium 8.6
Vital Signs:
max temp for 24 hours
01/12/25
15:14
Temp 98.7 F
Vital Signs
Temp Pulse Resp BP Pulse Ox
99.2 F 56 16 132/86 96
01/13/25 08:37 01/13/25 08:37 01/13/25 08:37 01/13/25 08:37 01/13/25 08:37
I&O
01/12/25 01/13/25 01/14/25
06:59 06:59 06:59
Intake Total 2500 / 2500 1700 / 1700
Balance 2500 / 2500 1700 / 1700
Review of Systems
-
All other systems: Reviewed and negative
Abdomen/GI: Reports Diarrhea; Denies Abdominal Pain
Physical Exam
-
General: Well Developed, Well Nourished and No Apparent Distress
HEENT: Normocephalic and Atraumatic
Respiratory: Clear to Auscultation; Negative Wheezes or Rhonchi
Cardiac: Regular Rhythm and S1/S2; Negative Murmur
GI: Soft, Nontender, Nondistended and Normal Bowel Sounds
Musculoskeletal: No Clubbing, No Cyanosis and No Edema
Neuro: Awake and Alert
Psych: Calm
--- NOTE | 2025-01-13 14:36 | CM ---
Chart reviewed. Plan is to home with spouse when stable.
Plan; Home with spouse.
[2025-01-13 15:16] VITALS: BP 140/83
[2025-01-13 23:01] VITALS: BP 129/81
[2025-01-14 07:15] LABS: Hematocrit 37.7 % (39.0-52.0); Mean Corp Hgb Conc. 34.5 g/dL (33.0-37.0); Mean Corpuscular Hgb 30.4 pg (27.0-31.0); Mean Corpuscular Volume 88.3 fL (80.0-94.0); Platelet Count 213 10^3/uL (130-400); Red Blood Cell Count 4.27 10^6/uL (4.70-6.10); Red Cell Dist. Width 12.7 % (11.5-14.5); White Blood Cell Count 11.1 10^3/uL (4.8-10.8)
[2025-01-14] MEDS: HEPARIN 5000 UNITS SC (07:42)
[2025-01-14] MEDS: FIRVANQ 125 MG PO ×2 (07:42→12:48)
[2025-01-14] MEDS: NICODERM TRANSDERMAL 14 MG TRANSDERM (07:43)
[2025-01-14 07:45] VITALS: BP 149/85
[2025-01-14 07:58] LABS: Blood Urea Nitrogen 8 mg/dl (9-20); Calcium 8.6 mg/dl (8.4-10.2); Carbon Dioxide 22 mmol/L (22-30); Chloride 111 mmol/L (98-107); Estimated Creatinine Clearance > 125 ml/min; Glucose 93 mg/dl (70-99); Potassium 4.1 mmol/L (3.5-5.1); Sodium 141 mmol/L (135-145); eGFR > 60.00
[2025-01-14 09:02] LABS: Magnesium 1.8 mg/dl (1.6-2.3)
--- NOTE | 2025-01-14 09:50 | W.PN.HOSP.TC ---
Today's Communication/Plan
-
Diet advanced to low-fat low residue diet.
Assessment / Plan
Assessment / Plan
Impression
49-year-old male presenting with left lower quadrant abdominal pain.
Plan
#C. difficile colitis
Abdominal pain improved
White count improved to 11.1, patient is afebrile
Tolerating clears well
Will advance to low-fat low residue diet today
Continue oral vancomycin�10/01
Colorectal and GI on board
Follow-up with GI for outpatient colonoscopy in 8 weeks
#Active smoker
Continue nicotine patch
DVT proph�heparin subcu
Full code
Anticipated Discharge: Within 24 hours
Subjective/Interval History
-
Date of Service: January 14, 2025
Patient reports his pain has improved, able to tolerate full liquids well. No nausea/vomiting reported.
Patient reports having 2 bowel movements in the morning today (semisolid, well-formed than previously)
Objective Data
-
Labs:
Laboratory Results
01/14/25
06:34
WBC 11.1 H
Hgb 13.0
Hct 37.7 L
Plt Count 213
Sodium 141
Potassium 4.1
Chloride 111 H
Carbon Dioxide 22
BUN 8 L
Creatinine 0.7
Glucose 93
Calcium 8.6
Vital Signs:
Vital Signs
Temp Pulse Resp BP Pulse Ox
99.4 F 51 14 149/85 98
01/14/25 07:45 01/14/25 07:45 01/14/25 07:45 01/14/25 07:45 01/14/25 07:45
I&O
01/13/25 01/14/25 01/15/25
06:59 06:59 06:59
Intake Total 1700 / 1700 625 / 625
Balance 1700 / 1700 /
Review of Systems
-
All other systems: Reviewed and negative (Except as mentioned above)
Physical Exam
-
General: Well Developed, Well Nourished and No Apparent Distress
HEENT: Normocephalic and Atraumatic
Respiratory: Clear to Auscultation
Cardiac: Regular Rhythm and S1/S2
GI: Soft, Nontender, Nondistended, Normal Bowel Sounds and Tender ( )
Skin: Warm and Dry
Neuro: Awake, Alert, Oriented and AO x 3
Psych: Calm
--- NOTE | 2025-01-14 11:43 | W.PN.GI.CBS2 ---
Today's Communication / Plan
-
Low residue diet
Continue Vanco
Outpatient GI follow-up
Assessment / Plan
-
49-year-old male with past medical history of chronic back pain on meloxicam for the past week, tobacco use presents to the emergency room with acute onset of left-sided abdominal discomfort associated with bowel movement with undigested food and
blood. Asked to evaluate for the same. The patient states that this morning he woke up and had left upper quadrant discomfort that he states was a 'stabbing sensation'. He states that he had a bowel movement which he showed me that was large,
solid, had blood mixed throughout it. He has had no further bowel movement since. He still with significant left upper quadrant tenderness upon palpation. He did have an episode of nausea and vomiting as well. Because of this he proceeded to
come to the emergency room. Prior to the meloxicam use he was taking intermittent Advil for back pain. He has never had a colonoscopy before. No family history of gastrointestinal malignancy or IBD. He does have a temperature of 100.2, WBC 17.9.
He was placed on Zosyn.
Impression:
Left-sided colitis -infectious versus inflammatory vs diverticulitis. Considering his acute clinical presentation less likely IBD. No prior colonoscopy.
Stool studies - C.diff + . stool culture - negative
Plan:
- Abdominal pain is better. Abdominal examination no tenderness. WBC is trending down. No fever . Stool studies positive for C. difficile-vancomycin started by medical team
-Okay to advance to low fat low residual diet as tolerated
- continue vanco . ok to d/c zosyn
-Colorectal surgery was on board. Progress Notes reviewed-continue nonop measures.
- Stool calprotectin pending
- Patient eventually need colonoscopy in 8-12 weeks .follow-up with GI as outpatient . Will sign off
Total Time Spent with Patient (in minutes): 35
Subjective
Subjective
Date of Service: January 14, 2025
Denies any abdominal pain/nausea/vomiting. Having watery diarrhea.
Objective
Data Reviewed
Laboratory Data:
Laboratory Results
01/14/25 06:34
01/14/25 06:34
Laboratory Results
Magnesium 1.8 mg/dl (1.6-2.3) 01/14/25 06:34
Total Bilirubin 1.2 mg/dl (0.2-1.3) 01/12/25 07:22
AST 18 U/L (17-59) 01/12/25 07:22
ALT 15 U/L (0-50) 01/12/25 07:22
Alkaline Phosphatase 51 U/L (38-126) 01/12/25 07:22
Lipase 269 U/L (23-300) 01/10/25 10:03
Vital Signs and I&O:
Vital Signs
Temp Pulse Resp BP Pulse Ox
99.4 F 51 14 149/85 98
01/14/25 07:45 01/14/25 07:45 01/14/25 07:45 01/14/25 07:45 01/14/25 07:45
I&O
01/13/25 01/14/25 01/15/25
06:59 06:59 06:59
Intake Total 1700 / 1700 625 / 625
Balance 1700 / 1700 625 / 625
Physical Exam
Physical Exam
GI: Soft, Non Distended and Non Tender
[2025-01-14 15:00] VITALS: BP 138/83
--- NOTE | 2025-01-14 15:26 | W.DCSUMMARY ---
Documented by User: Mg Alfonso MD, Resident 01/14/25 16:37
Discharge Summary
Discharge Data
Date of Admission: 01/10/25
Date of Discharge: 01/14/25
-
Pending Results: Yes
Additional Pending Results:
Fecal calprotectin
Hospital Course
Discharging Physician : Dr. Flores, Dr. Holliday
Disposition : Home
Principal Discharge diagnosis : Clostridium difficile colitis
Hospital Course : 49-year-old male with past medical history significant for chronic back pain on meloxicam, presents to the ER reporting acute severe left lower quadrant pain and 1 episode of blood in the stool. Patient never had colonoscopy
before. In the ER he was found to have leukocytosis with WBC of 17.9, Hb�15.3, afebrile, CT evidence of mild acute uncomplicated left-sided colitis/superimposed acute diverticulitis in mid descending colon. GI consulted. Patient was started on IV
fluids, IV Zosyn. Stool culture�negative, stool study positive for C. difficile. Patient was started on p.o. vancomycin 125 mg 4 times daily, IV Zosyn discontinued. Patient's diet was advanced as tolerated, IV fluids discontinued once the patient
is tolerating clears well. Patient has clinically improved, white count has improved, tolerating solids well without nausea/vomiting. Patient is clinically and hemodynamically stable to be discharged home, vancomycin to be continued for a total
course of 10 days through 01/22/2025. Recommended follow-up with GI as outpatient in 4 to 8 weeks for colonoscopy.
Important imaging findings :
CT abdomen/pelvis�01/10/2025. Mild acute uncomplicated left-sided colitis, likely of infectious/inflammatory etiology.
2. Suspect superimposed acute diverticulitis within the mid descending colon.
Discharge Plan
-
Patient Disposition: Home (Routine Discharge)
Discharge Diagnosis/Procedures: Clostridium difficile colitis
Condition: Good
Diet: Low Fat and Low Residue
Activity: As tolerated
Driving Restrictions: As prior to admission
Bathing Restrictions: None
Referrals:
Catracho Damico MD [Family Provider, Internal Medicine] - in less than 1 week
Graham Shankar MD [Active, Gastroenterology] - in two to four weeks
Referral Note: Colonoscopy 6-8 weeks
Mo Hurt MD [Active, ColoRectal] - in two to three weeks
Additional Discharge Medication Instructions: Continue vancomycin 125 mg for 8 more days through 07/31/2024, 4 times daily
Follow-up with GI in 4 to 8 weeks for outpatient colonoscopy
Prescriptions:
New
nicotine 14 mg/24 hr Patch 24 Hour
14 mg transdermal DAILY Qty: 14 0RF
vancomycin 125 mg capsule
125 mg PO QID Qty: 32 0RF
Discontinued
meloxicam [Mobic] 15 mg Tablet
15 mg PO DAILYPRN PRN (Reason: mild pain)
Discharge Orders:
Discharge Patient (As Directed); Ordered 01/14/25
Ordered By: Mg Alfonso
Discharge Date and Time
Discharge Date/Time: 01/14/25 15:41
Print Language: CITIZEN OF [place]

Documented by User: Lance Flores DO 01/14/25 18:15
Discharge Summary
Discharge Data
Date of Admission: 01/10/25
Date of Discharge: 01/14/25
Total time spent discharging patient (in min): 31
Hospital Course
Discharging Physician : Dr. Mg Ferrari
Disposition : Home
Principal Discharge diagnosis : Clostridium difficile colitis, Diverticulitis
Hospital Course : 49-year-old male with past medical history significant for chronic back pain on meloxicam, presents to the ER reporting acute severe left lower quadrant pain and 1 episode of blood in the stool. Patient never had colonoscopy
before. In the ER he was found to have leukocytosis with WBC of 17.9, Hb�15.3, afebrile, CT evidence of mild acute uncomplicated left-sided colitis/superimposed acute diverticulitis in mid descending colon. GI consulted. Patient was started on IV
fluids, IV Zosyn. Stool culture�negative, stool study positive for C. difficile. Patient was started on p.o. vancomycin 125 mg 4 times daily, IV Zosyn discontinued. Patient's diet was advanced as tolerated, IV fluids discontinued once the patient
is tolerating clears well. Patient has clinically improved, white count has improved, tolerating solids well without nausea/vomiting. Patient is clinically and hemodynamically stable to be discharged home, vancomycin to be continued for a total
course of 10 days through 01/22/2025. Recommended follow-up with GI as outpatient in 4 to 8 weeks for colonoscopy.
Important imaging findings :
CT abdomen/pelvis�01/10/2025. Mild acute uncomplicated left-sided colitis, likely of infectious/inflammatory etiology.
2. Suspect superimposed acute diverticulitis within the mid descending colon.
Discharge Plan
-
Patient Disposition: Home (Routine Discharge)
Discharge Diagnosis/Procedures: Clostridium difficile colitis
Condition: Good
Diet: Low Fat and Low Residue
Activity: As tolerated
Driving Restrictions: As prior to admission
Bathing Restrictions: None
Referrals:
Catracho Damico MD [Family Provider, Internal Medicine] - in less than 1 week
Graham Shankar MD [Active, Gastroenterology] - in two to four weeks
Referral Note: Colonoscopy 6-8 weeks
Mo Hurt MD [Active, ColoRectal] - in two to three weeks
Additional Discharge Medication Instructions: Continue vancomycin 125 mg for 8 more days through 07/31/2024, 4 times daily
Follow-up with GI in 4 to 8 weeks for outpatient colonoscopy
Prescriptions:
New
nicotine 14 mg/24 hr Patch 24 Hour
14 mg transdermal DAILY Qty: 14 0RF
vancomycin 125 mg capsule
125 mg PO QID Qty: 32 0RF
Discontinued
meloxicam [Mobic] 15 mg Tablet
15 mg PO DAILYPRN PRN (Reason: mild pain)
Discharge Orders:
Discharge Patient (As Directed); Ordered 01/14/25
Ordered By: Mg Alfonso
Discharge Date and Time
Discharge Date/Time: 01/14/25 15:41
Print Language: CITIZEN OF [place]
[2025-01-14 22:16] LABS: Calprotectin, Fecal 174 ug/g (<=49)
== END 2025-01-14 15:41 | disposition home or self-care (01) | DRG 372 ==
LOC: 4 WEST ACU 13:21
PROVIDERS: Hospitalist; Physician Assistant; Registered Nurse; Student in an Organized Health Care Education/Training Program; ADMITTING PHYSICIAN Internal Medicine; ATTENDING PHYSICIAN Internal Medicine; CONSULT PHYSICIAN Internal Medicine Gastroenterology; EMERGENCY PHYSICIAN Emergency Medicine; FAMILY PHYSICIAN Internal Medicine; OTHER PHYSICIAN Surgery
DX: A04.72 Enterocolitis due to Clostridium difficile, not specified as recurrent (principal); K51.511 Left sided colitis with rectal bleeding; K57.92 Diverticulitis of intestine, part unspecified, without perforation or abscess without bleeding; F17.210 Nicotine dependence, cigarettes, uncomplicated
CPT/HCPCS: 74177; 80048; 80053; 81003; 81015; 83690; 83735; 83993; 85025; 85027; 86140; 87045; 87046; 87086; 87324; 87427; 87449; 96365; 96375; 99284; Q9967

== ENCOUNTER 2025-01-19 20:33 | Emergency (ER) | payer BC, SELFPAY ==
[2025-01-19 20:36] VITALS: BP 133/92
--- NOTE | 2025-01-19 21:46 | ED.GENMED ---
History of Present Illness
General
Chief Complaint: Back Pain
Source: patient
Exam Limitations: none
Time Seen by Provider: 01/19/25 21:00
Nursing documentation reviewed up to this point in time: agreed with
History of Present Illness
History of Present Illness:
Patient is a 49-year-old male who presents to the ER for evaluation of back pain. Patient has a history of chronic back pain, sciatica discectomy presents to the ER for evaluation. Patient has had pain for the past several days in his left back
left buttocks rating down his left leg. He does have numbness and tingling in his left leg. He called his family doctor and was prescribed 1 dose of steroids without relief.
He reports he barely can able stand or walk. He denies any bowel or bladder incontinence denies any saddle paresthesia.
Past History
Past History
ED Past Medical History: Other (Chronic back pain)
ED Past Surgical History: Orthopedic (L4-L5 disc discectomy)
Review of Systems
Review of Systems
Allergies reviewed?: Yes
Phy Exam
General Physical Exam
General Presentation: no apparent distress
General age: appears stated age
General Skin: warm and dry
General Habitus: normal
General Mental: alert
General Hydration: appears well hydrated
Neurological Exam
Neurological Exam: alert, oriented x3, no motor deficits and other (Slight decrease sensation to left leg able to plantar/dorsiflex/ nml patellar reflexes b/l )
Musculoskeletal Exam
Musculoskeletal Exam: full ROM
Skin Exam
Skin Exam: normal color and warm/dry
Psychiatric Exam
Psychiatric Exam: normal mood/affect
Course
Orders/Labs/Results
Orders:
Orders
01/19/25 21:45
Dexamethasone Pf [Decadron] 10 mg PO NOW STA
Diazepam [Valium] 5 mg PO NOW STA
HYDROmorphone [Dilaudid] 1 mg IM NOW STA
Vital Signs
Initial and Last Documented VS:
Initial Vital Signs
Temp Pulse Resp BP Pulse Ox
98.5 F 96 16 133/92 98
01/19/25 20:36 01/19/25 20:36 01/19/25 20:36 01/19/25 20:36 01/19/25 20:36
Last Documented Vital Signs
Temp Pulse Resp BP Pulse Ox
98.5 F 74 18 127/84 95
01/19/25 20:36 01/19/25 22:15 01/19/25 22:15 01/19/25 22:15 01/19/25 22:15
MDM/Problems Addressed
Differential Diagnosis Includes:
Not not limited to sciatica/ back pain
MDM/Problems Addressed:
Symptoms are consistent with sciatica. Patient with no neurological deficits. Patient with no saddle paresthesia. No lower extremity weakness. patient was given steroid Valium and pain medication here in the ER will DC with Valium and steroids.
Discussed close outpatient follow-up. Not limited
*Pulse Oximetry
SaO2: 98
Oxygen Mode of Delivery: Room air
Patient hypoxic: not evaluated
*Critical Care Note
Total Time (30-74mins, 75-104mins- exclusive of procedures): Not Applicable
ED Attending Note
-
Portions of this chart may have been created with voice recognition software.� Occasional wrong word or��sound alike� substitutions may have occurred due to the inherent limitations of voice recognition software.
Discharge Plan
Departure
Patient Disposition: Home (Routine Discharge)
Date of Disposition: 01/19/25
Time of Disposition: 22:24
Patient with high blood pressure during this ER visit?: Yes
Condition: Fair
Covid-19: Not Applicable
Discharge Problem:
Sciatica
Instructions: Sciatica (DC), BLOOD PRESSURE
Prescriptions:
New
prednisone 10 mg Tablet
See Rx Instructions .ROUTE .COMPLEX Qty: 30 0RF
Rx Instructions:
Take By Mouth:
40 mg daily x3 days, 30 mg daily x3 days,
20 mg daily x3 days, 10 mg daily x3 days.
diazepam [Valium] 5 mg tablet
5 mg PO TID PRN (Reason: muscle spasm) Qty: 10 0RF
No Action
nicotine 14 mg/24 hr Patch 24 Hour
14 mg transdermal DAILY Qty: 14 0RF
vancomycin 125 mg capsule
125 mg PO QID Qty: 32 0RF
Referrals:
UNKNOWN - PT DOES,NOT KNOW [Family Provider]
Activity Restrictions/Additional Instructions:
As discussed a prescription for Valium and prednisone taper was sent to pharmacy take as directed. No driving or drinking alcohol while taking Valium. Follow-up with family doctor the next 2 days or reevaluation return if any worsening of symptoms.
Interventions
Interventions:
*Risk Screen - Suicide Last Done: 01/19/25 20:36
*General Assessment Last Done: 01/19/25 20:36
*Neglect/Abuse Screening Last Done: 01/19/25 21:03
*ED- Fall Risk Assessment Last Done: 01/19/25 20:36
*ED COVID-19 Vaccine History Last Done: 01/19/25 21:07
ED-Musculoskeletal Assessment Last Done: 01/19/25 21:03
Discharge Date and Time
Print Language: FRENCH
[2025-01-19] MEDS: DILAUDID 1 MG IM (21:50)
[2025-01-19] MEDS: VALIUM 5 MG PO ×2 (21:50→23:35)
[2025-01-19] MEDS: DECADRON 10 MG PO (21:50)
[2025-01-19 22:15] VITALS: BP 127/84
[2025-01-19 22:55] VITALS: BP 140/94; BMI 27.9
== END 2025-01-19 23:45 | disposition home or self-care (01) ==
LOC: EMR 20:33
PROVIDERS: EMERGENCY PHYSICIAN Emergency Medicine
DX: M54.42 Lumbago with sciatica, left side (principal); R20.0 Anesthesia of skin; R20.2 Paresthesia of skin; R26.2 Difficulty in walking, not elsewhere classified; R03.0 Elevated blood-pressure reading, without diagnosis of hypertension; G89.29 Other chronic pain; M19.90 Unspecified osteoarthritis, unspecified site; F17.200 Nicotine dependence, unspecified, uncomplicated
CPT/HCPCS: 99284; 96372

== ENCOUNTER 2025-02-19 09:39 | Outpatient (RCR) | payer BC, SELFPAY | END 2025-02-19 23:59 | disposition home or self-care (01) | LOC: RPT 09:39 | PROVIDERS: ATTENDING PHYSICIAN Internal Medicine | DX: M25.551 Pain in right hip (principal); Z73.6 Limitation of activities due to disability; R26.89 Other abnormalities of gait and mobility; M62.81 Muscle weakness (generalized) | CPT/HCPCS: 97162 ==

== ENCOUNTER 2025-03-11 06:34 | Day surgery (SDC) | payer BC, SELFPAY | END 2025-03-11 10:56 | disposition home or self-care (01) | LOC: GI 06:34 | PROVIDERS: ATTENDING PHYSICIAN Internal Medicine Gastroenterology | DX: K57.30 Diverticulosis of large intestine without perforation or abscess without bleeding (principal); K64.9 Unspecified hemorrhoids; K57.32 Diverticulitis of large intestine without perforation or abscess without bleeding; K63.89 Other specified diseases of intestine; D12.3 Benign neoplasm of transverse colon | CPT/HCPCS: 45385; 45380; 88305 ==